=== PATIENT | female | born 1955 | race Caucasian/White ===

== ENCOUNTER → 2023-07-25 13:34 | Outpatient (REF) | payer MEDICARE, OTHER, SELFPAY ==
[2023-07-25 14:20] LABS: Hematocrit 40.2 % (37.0-47.0); Hemoglobin 13.4 g/dL (12.0-16.0); Mean Corp Hgb Conc. 33.3 g/dL (33.0-37.0); Mean Corpuscular Hgb 27.9 pg (27.0-31.0); Mean Corpuscular Volume 83.6 fL (81.0-99.0); Platelet Count 242 10^3/uL (130-400); Red Blood Cell Count 4.81 10^6/uL (4.20-5.40); Red Cell Dist. Width 14.6 % (11.5-14.5); White Blood Cell Count 5.7 10^3/uL (4.8-10.8)
[2023-07-25 14:58] LABS: INR 1.22; PT 15.3 Sec (11.4-14.6)
[2023-07-25 15:06] LABS: ALT (SGPT) 24 U/L (0-35); AST (SGOT) 35 U/L (14-36); Albumin 4.5 g/dl (3.5-5.0); Alkaline Phosphatase 94 U/L (38-126); Blood Urea Nitrogen 21 mg/dl (7-17); Calcium 10.2 mg/dl (8.4-10.2); Carbon Dioxide 24 mmol/L (22-30); Chloride 103 mmol/L (98-107); Glucose 91 mg/dl (70-99); Magnesium 2.1 mg/dl (1.6-2.3); Sodium 136 mmol/L (135-145); Total Bilirubin 0.7 mg/dl (0.2-1.3); Total Protein 7.3 g/dl (6.3-8.2); eGFR > 60.00
== END ==
LOC: SDSPAT 13:34
PROVIDERS: ATTENDING PHYSICIAN Internal Medicine Cardiovascular Disease; FAMILY PHYSICIAN Internal Medicine; OTHER PHYSICIAN Internal Medicine Cardiovascular Disease
DX: I48.0 Paroxysmal atrial fibrillation (principal); I48.92 Unspecified atrial flutter
CPT/HCPCS: 36415; 80053; 83735; 85027; 85610; 86850; 86900; 86901; 93005

== ENCOUNTER 2023-08-04 07:56 | Day surgery (SDC) | payer MEDICARE, OTHER, SELFPAY | END 2023-08-04 09:30 | disposition home or self-care (01) | LOC: CATH 07:56 | PROVIDERS: ATTENDING PHYSICIAN Internal Medicine Cardiovascular Disease; FAMILY PHYSICIAN Internal Medicine; OTHER PHYSICIAN Internal Medicine Cardiovascular Disease | DX: I48.0 Paroxysmal atrial fibrillation (principal); I48.92 Unspecified atrial flutter; R00.2 Palpitations; F41.9 Anxiety disorder, unspecified; Z79.01 Long term (current) use of anticoagulants; I08.3 Combined rheumatic disorders of mitral, aortic and tricuspid valves; I08.8 Other rheumatic multiple valve diseases | CPT/HCPCS: 93312; 93320; 93325 ==

== ENCOUNTER 2023-08-09 09:38 | Day surgery (SDC) | payer MEDICARE, OTHER, SELFPAY ==
[2023-07-25 14:01] VITALS: BMI 21.7
[2023-08-09] VITALS (11 sets, daily range): BP systolic 88–124; BP diastolic 50–80
[2023-08-09] MEDS: NSS 500 IV (10:23)
[2023-08-09 13:00] LABS: ACT-LR - POC 276 Seconds (116-155)
[2023-08-09 13:35] LABS: ACT-LR - POC 179 Seconds (116-155)
[2023-08-09 13:42] LABS: ACT-LR - POC 371 Seconds (116-155)
[2023-08-09 14:09] LABS: ACT-LR - POC 395 Seconds (116-155)
[2023-08-09 14:25] LABS: ACT-LR - POC 385 Seconds (116-155)
[2023-08-09 14:47] LABS: ACT-LR - POC 137 Seconds (116-155)
--- NOTE | 2023-08-09 15:10 | ITS.CL.ABL ---
Stage Electrician Helper - Ablation
Ablation
Procedure Report:
Primary Cured Meat Packing Supervisor: Pio Guillaume MD
Procedure Date: 08/09/2023
Patient History:
Patient is a pleasant 68-year-old female with a past medical history significant for palpitations, anxiety, lower back pain, paroxysmal atrial flutter status post CTI RFA and paroxysmal atrial fibrillation on Eliquis and beta-amadeo.
Indication:
Symptomatic paroxysmal atrial fibrillation
Arrhythmia Specific History:
Prior Medical Therapies for Rate and Rhythm Control:
X Beta-amadeo
[ ] Calcium channel-amadeo
[ ] Amiodarone
[ ] Dronederone
[ ] Sotalol
[ ] Flecainide
[ ] Dofetilide
[ ] Options limited by bradycardia
[ ] Options limited by comorbid renal disease
Prior Procedural Therapies for AF/AFL:
X Cardioversion
[ ] Pulmonary Vein Isolation
[ ] Posterior Wall Isolation
X Additional lines (Specify) -- CTI RFA
[ ] Surgical Abbott-MAZE or PVI (Specify)
Procedure Performed:
X AF ablation procedure (74527) -- includes LA/CS pacing, trans-septal, 3D mapping, + ICE
[ ] +IV drug (20863)
[ ] +Other Arrhythmia (20314)
[ ] +Other AF Line/ablation (33652)
Risks and expected recovery has been explained in detail. Alternative options have been explored, and in a shared-decision making fashion we have decided that this was the most appropriate procedure.
Method
NPO status confirmed. Grounding pad applied. Defibrillator pads applied. Continuous surface ECG, pulse oximetry, and blood pressure were monitored. Procedure was performed under general anesthesia, with anesthesia services.
Both groins were clipped, prepped with Chloraprep, and draped in sterile fashion. Time out was called. Local anesthesia administered with bupivacaine. The right and left femoral veins were accessed for catheter placement, using ultrasound guidance,
micro-puncture needle/wire, and modified seldinger technique. [ ] sheaths were placed. The following catheters were used:
[ ] Tacticath SE (D/F Curve) ablation catheter
X Viewflex 9Fr ICE catheter
X Inquiry decapolar 6Fr diagnostic catheter
[ ] CRD Hex 6Fr
X Arctic Front Advance Cryoballoon (28mm)
X Achieve Advance mapping catheter (15mm)
[ ] [employer] AcuNav 8 Fr ICE catheter
[ ]Other: [ ]
Intracardiac ultrasound (ICE) was carefully advanced into the right atrium to guide sheath placement over a J-wire, catheter placement, guide trans-septal puncture, identify potential complications, identify anatomic structures and ensure proper
contact between ablation catheter and tissue.
Heparin was given prior to trans-septal puncture. Heparin was given to achieve and maintain a target ACT of 300-400 seconds.
Trans-septal access was performed under ICE guidance. The trans-septal puncture was performed with a SafeSept wire through a Brockenbrough needle assembly through agilis steerable sheath. The wire was visualized as it entered the LSPV. The
Brockenbrough needle assembly, SafeSept wire and sheath dilator were removed under negative pressure. The Protrack pigtail wire was advanced through the sheath into the left atrium with position confirmed on ICE and fluoroscopy. The steerable long
sheath was exchanged from the cryo steerable sheath over the Protrack wire and was advanced into the LA and positioned at the mitral annulus, LA pressure measured.
ICE and 3D mapping was performed to identify relevant cardiac structures. A careful 3D map was created to assess for regions of low-voltage and abnormal electrogram signals. Additional mapping was performed as outlined below. See synopsis for
details.
Cryoballoon ablation was performed using freeze/thaw/freeze at 2-4 minute intervals. Ablation targets included Cryoballoon temperatures of -30 degrees @ 30 seconds with goal temp typically between -40 and -50 degrees Celsius with time to effect when
measurable recorded to guide duration of application and need for repeat ablation in each vein. Esophageal temperature monitored throughout intervention. Phrenic nerve pacing performed during cryoapplication in the right pulmonary veins to monitor
for any evidence of PNI requiring application termination. See synopsis and procedure log for details.
Catheter and sheath were removed from the left atrium and post-ablation intracardiac echo evaluation was consistent with pre-ablation with no changes and no pericardial effusion and there is no left atrial thrombus or left ventricle thrombus seen.
Electrophysiology study was performed. Hemostasis was obtained with vascade/vascade MVP for each groin with manual pressure. Protamine was used for reversal.
Estimated Blood Loss
5-10 mL
Complications
None
Procedure Synopsis:
The patient entered the room in SR. Three-dimensional mapping with EnSite system was performed with reconstruction of left atrium utilizing Achieve catheter. Intracardiac ultrasound and EnSite was used for guidance of ablation and placement of the
Cryoballoon. Patient was noted to have very paroxysmal AF during procedure with frequent AF and return to SR. PV seal was confirmed with pressure waveform and ICE. Using the Achieve catheter, it was confirmed that pulmonary veins were active. All
pulmonary veins were isolated successfully using Cryoballoon ablation using freeze/thaw/freeze cycles at 2-4-minute intervals, with good [id number] of isolation. No signal was noted in the right sided veins however temperature profile and cryo
lesion met appropriate metrics. During the right-sided PV ablation, phrenic nerve pacing was performed to assess the phrenic nerve strength and the phrenic nerve was intact throughout the right-sided ablation. Pre- and post-pulmonary vein recording
and pacing from the Achieve catheter was utilized to ensure complete pulmonary vein isolation. LA voltage map created at procedure conclusion confirming WACA of bilateral PVs.
Fluoroscopy: 16.9 minutes; 20.70 mGy
Contrast used: 0 cc
Baseline Intervals:
Rhythm: SR
UT: 131 ms
QRS: 117 ms
QT: 500 ms
QTc: 442 ms
A-A: 1280 ms
R-R: 1280 ms
Post-Procedure Intervals:
UT: 118 ms
QRS: 98 ms
QT: 462 ms
QTc: 498 ms
A-A: 862 ms
R-R: 862 ms
Recommendations
- Bedrest with straight-leg precautions as ordered
- Anticipate same day discharge if patient meeting clinical metrics
- Resume home medications as indicated
- Ok to resume anticoagulation tonight if patient and groin sites stable
- PPI daily for 30 days
- Plan for follow-up in office in 4-[address] Guillaume
- Hold beta-amadeo due to prior bradycardia; if palpitations, can resume as daily
Nathaniel oGod DO
Clinical Cardiac Care Management Associate
cc: Pio Guillaume MD; Ivonne Enrique DO
[2023-08-09] MEDS: ANESTHETIC LOZENGE 1 LOZENGE PO (16:45)
[2023-08-09] MEDS: TYLENOL 650 MG PO (16:45)
--- NOTE | 2023-08-09 17:04 | W.PN.UPDATE ---
Update Note
Progress Note Update
Pt seen post PVI. Bilat groin sites with vascade closure, no ht/bleeding, non tender. OOB ambulating. Urinating without difficulty. Post EKG NSR 60s, no acute changes. Resume eliquis tonight. Will discontinue metoprolol d/t bradycardia. Followup
with Dr. Guillaume arranged. Home today if groin sites/tele remain stable.
[2023-08-10 08:15] LABS: ACT-LR - POC > 397 Seconds (116-155)
== END 2023-08-09 18:14 | disposition home or self-care (01) ==
LOC: CATH 09:38
PROVIDERS: ATTENDING PHYSICIAN Internal Medicine Cardiovascular Disease; FAMILY PHYSICIAN Internal Medicine
DX: I48.0 Paroxysmal atrial fibrillation (principal); I48.92 Unspecified atrial flutter; M54.50 Low back pain, unspecified; Z98.890 Other specified postprocedural states; Z79.01 Long term (current) use of anticoagulants; F41.9 Anxiety disorder, unspecified; F32.A Depression, unspecified; I47.19 Other supraventricular tachycardia; Z88.0 Allergy status to penicillin; I08.3 Combined rheumatic disorders of mitral, aortic and tricuspid valves; I70.0 Atherosclerosis of aorta
CPT/HCPCS: 93312; 93320; 93325; C1766 ×2; C1894; C1730; C1893; C1733; C1892; C1759; 76937; 85347; 86900; 86901; 93005; 93656

== ENCOUNTER 2023-08-10 23:11 | Inpatient (IN) | payer MEDICARE, OTHER, SELFPAY ==
[2023-08-10] VITALS (15 sets, daily range): BP systolic 83–124; BP diastolic 51–93; BMI 22.3
[2023-08-10] MEDS: CARDIZEM 10 MG IV (20:53)
[2023-08-10] MEDS: CARDIZEM 125 IV (20:55)
[2023-08-10 20:56] LABS: % Basophils 0.9 % (0-2); % Eosinophils 3.2 % (0-6); % Immature Granulocytes 0.3 % (0-0.5); % Lymphocytes 32.5 % (20.5-51.1); % Neutrophils 57.1 % (42.2-75.2); Absolute Basophils 0.1 10^3/uL (0-0.2); Absolute Eosinophils 0.2 10^3/uL (0-0.7); Absolute Lymphocytes 2.3 10^3/uL (1.2-3.4); Absolute Monocytes 0.4 10^3/uL (0.1-0.6); Hematocrit 41.7 % (37.0-47.0); Mean Corp Hgb Conc. 33.6 g/dL (33.0-37.0); Mean Corpuscular Hgb 28.1 pg (27.0-31.0); Mean Corpuscular Volume 83.7 fL (81.0-99.0); Nucleated Red Blood Cells % 0 %; Platelet Count 225 10^3/uL (130-400); Red Blood Cell Count 4.98 10^6/uL (4.20-5.40); Red Cell Dist. Width 14.8 % (11.5-14.5)
[2023-08-10 21:18] LABS: ALT (SGPT) 26 U/L (0-35); AST (SGOT) 61 U/L (14-36); Albumin 4.5 g/dl (3.5-5.0); Alkaline Phosphatase 87 U/L (38-126); Blood Urea Nitrogen 19 mg/dl (7-17); Calcium 10.2 mg/dl (8.4-10.2); Carbon Dioxide 26 mmol/L (22-30); Chloride 99 mmol/L (98-107); Estimated Creatinine Clearance 68 ml/min; Glucose 113 mg/dl (70-99); Magnesium 1.9 mg/dl (1.6-2.3); Sodium 134 mmol/L (135-145); Total Bilirubin 0.6 mg/dl (0.2-1.3); Total Protein 7.2 g/dl (6.3-8.2); eGFR > 60.00
--- NOTE | 2023-08-10 21:44 | ED.GENMED ---
History of Present Illness
General
Chief Complaint: Heart Rate Problem
Source: patient and family
Exam Limitations: none
Time Seen by Provider: 08/10/23 20:40
Travel History
Have you had any contact with someone who has COVID-19?: No
Do you have any symptoms of coronavirus? Fever > 100 degrees, chills, cough, shortness of breath, sore throat, loss of taste or smell, muscle aches, or headache?: No
History of Present Illness
History of Present Illness:
68-year-old female who presents after she noticed her heart racing. She also had some pain in the middle of her back. Patient states she also had palpitations last night and called cardiology and was advised to try to wait it out. She had an
ablation done yesterday. Patient states that today it has persisted for 4 to 5 hours. She is anticoagulated. She does report discomfort in the middle of her chest or her back which is not usual for her atrial fibrillation/flutter.
Past History
Past History
ED Past Medical History: Arrthythmia (A-fib/a flutter) and Psychiatric
Phy Exam
Physical Exam
Physical Exam:
CONSTITUTIONAL Patient alert and oriented to person, place and time. Well-appearing. Vital signs reviewed.
HEAD atraumatic, normocephalic.
EYES eyelids normal to inspection, Extraocular muscles intact, Conjunctiva normal, Sclera normal.
NECK normal range of motion, Trachea midline, no jugular venous distention.
RESPIRATORY CHEST No respiratory distress noted, Chest expansion equal, Bilateral breath sounds clear.
CARDIOVASCULAR regular and tachycardic, otherwise heart sounds normal
ABDOMEN abdomen nontender, Bowel sounds normal. No distention.
BACK normal inspection, no obvious deformities
UPPER EXTREMITY range of motion normal, Motor strength normal, no cyanosis, no edema.
LOWER EXTREMITY range of motion normal, Motor strength normal, no cyanosis, no edema.
NEURO Speech normal, No focal motor deficits, Baisden coma scale 15, Memory normal, Cranial Nerves intact to screening exam.
Course
Orders/Labs/Results
Orders:
Orders
08/10/23 20:10
EKG [Electrocardiogram (*1)] Stat
Reason for Study: Atrial Fibrillation
EKG- Treatment ONCE
08/10/23 20:47
Cardiac Monitoring- Treatment ONCE
Diltiazem 125 mg/125 ml Nss [Cardizem] 125 mg in 125 ml IV NOW
Initial dose in mg/hr, then titrate:: 5
Titrate to keep:: Heart rate 80-100 bpm
Titrate by mg/hr:: 5 mg/hr
Frequency of titrations (minutes):: 15
Maximum dose in mg/hr:: 15
Diltiazem HCl [Cardizem] 10 mg IV NOW STA
CR Chest Portable - 1 View Urgent
Comment:
Reason For Exam: cp, recent ablation
Reason Study Needs to be Portable: Unable to Transport
08/10/23 20:49
Complete Blood Count/With Diff Urgent
Comprehensive Metabolic Panel Urgent
Magnesium Urgent
Abnormal Lab Results
08/10/23
20:49
RDW 14.8 H %
(11.5-14.5)
Sodium 134 L mmol/L
(135-145)
BUN 19 H mg/dl
(7-17)
Glucose 113 H mg/dl
(70-99)
AST 61 H U/L
(14-36)
08/10/23 20:49
08/10/23 20:49
Vital Signs
Initial and Last Documented VS:
Initial Vital Signs
Temp Pulse Resp BP Pulse Ox
98.2 F 141 18 124/93 96
08/10/23 20:22 08/10/23 20:22 08/10/23 20:22 08/10/23 20:22 08/10/23 20:22
Last Documented Vital Signs
Temp Pulse Resp BP Pulse Ox
98.2 F 72 16 99/73 97
08/10/23 20:22 08/10/23 22:15 08/10/23 22:15 08/10/23 22:15 08/10/23 22:15
MDM/Problems Addressed
MDM/Problems Addressed:
Atrial flutter with RVR
*Radiology
Radiology exam reviewed: radiology read reviewed
*Pulse Oximetry
Patient hypoxic: no
*EKG
Interpreted by ED Provider?: Yes
Interpretation: abnormal
Rate: tachycardiac
Rhythm: atrial flutter
Ischemia: non-specific ST changes
*Hand Coremaker Interpretation
Rate: tachycardiac
Interpretation: abnormal
Rhythm: atrial flutter
*Critical Care Note
Total Time (30-74mins, 75-104mins- exclusive of procedures): 40 minutes
Data Reviewed
Review of Other/Old Records Reveals: Operative Reports (Ablation report from 08/08)
Source: patient and family
Prescriptions/Medications Considered But Not Given:
Consider beta-amadeo blood pressure marginal
Patient Management
Discussion with other providers: Hospitalist and Company Pilot (Case discussed with Dr. Myles)
Escalation/DeEscalation of care consider admission/obs:
Six 8-year-old female who to the atrial flutter with RVR after ablation. Improved now on IV Cardizem. Offered ED cardioversion after discussion with cardiology. Patient would not like to proceed as she is a bit hesitant for that. She is hoping
to convert on her own and prefers monitoring in the hospital. I do not think this is unreasonable. Likely will benefit from AV blockers at home but it is acknowledged that in the past she had relative hypotension and a little bit of bradycardia.
Cardiology to consider.
ED Attending Note
-
Portions of this chart may have been created with voice recognition software.� Occasional wrong word or��sound alike� substitutions may have occurred due to the inherent limitations of voice recognition software.
Discharge Plan
Departure
Patient Disposition: Admit
Date of Disposition: 08/10/23
Time of Disposition: 22:41
Admit to: Telemetry
Presentation/result/management discussed w/ accepting MD/DO: Hospitalist
Discharge Problem:
Atrial flutter with rapid ventricular response
Prescriptions:
No Action
sertraline 100 mg Tablet
150 mg PO DAILY
alprazolam 0.25 mg Tablet
0.125 - 0.25 mg PO BID PRN (Reason: anxiety)
Patient Comments:
08/10/2023: last filled 07/31/23, 30 tabs for 15 days from [id number]
Eliquis 5 mg Tablet
5 mg PO BID
estradiol 0.01 % (0.1 mg/gram) cream
1 appful VAGINAL SUWE
cholecalciferol (vitamin D3) 1,250 mcg (50,000 unit) capsule
1,250 mcg PO FR
Interventions
Interventions:
*Risk Screen - Suicide Last Done: 08/10/23 20:27
*General Assessment Last Done: 08/10/23 20:27
*Neglect/Abuse Screening Last Done: 08/10/23 20:27
*ED COVID-19 Vaccine History Last Done: 08/10/23 20:34
ED- Cardiac Assessment Last Done: 08/10/23 20:42
ED- Pulmonary Assessment Last Done: 08/10/23 20:42
Discharge Date and Time
Print Language: UPPER SORBIAN
--- NOTE | 2023-08-10 22:56 | HPS.HSE ---
Addendum entered and electronically signed by John Whaley DO 08/11/23 02:10:
Patient seen and examined independently. Agree with findings and plan as set forth by SHERI Lanier.
Patient is a 68y F with PMH significant for paroxysmal A-Fib / Flutter, anxiety and osteoporosis who presents to ED complaining of chest tightness, back pain and palpitations. Patient underwent PVI ablation here at on 08/09/23. She states
that she went home and developed her current symptoms later that evening. She took a dose of Xanax and was able to get to sleep. This AM she felt well. Unfortunately, her symptoms recurred this afternoon. She took another dose of Xanax; however,
her symptoms did not improve this time. Patient presented to the ED for further evaluation and treatment.
Patient notes that the pain in her back is between her shoulder blades. She states that it was 7/10 at it's worst. Currently her pain is 3/10.
She was noted to be in A-Fib with rapid ventricular rate here in the ED and has been started on Cardizem infusion with improvement in rates and her subjective palpitations.
Ass:
Paroxysmal Atrial Fibrillation / Flutter with Rapid Ventricular Response
Chest Pain s/p A-Fib Ablation (08/09/23)
Myocardial Injury - rule out ischemia / ACS.
Anxiety / Depression
Plan:
Admit to IVU.
Continue Cardizem infusion and titrate as needed for adequate rate control / adequate perfusion.
ASA now and daily.
Continue home Eliquis.
Follow for any increase in pain and / or development of new symptoms.
Cardiology aware of current presentation, troponin, etc - follow for additional recommendations.
Follow serial troponin to peak - ? related to recent intervention, but concern given pain syndrome.
CT scan done in the ED shows small posterior pericardial effusion, no evidence of contrast extravasation, etc.
? tiny focus of air representing esophageal injury? No complaints of dysphagia / odynophagia / etc.
Consider GI evaluation.
Continue home Xanax PRN anxiety.
Original Note:
Family Physician
-
Family Physician: Ivonne Enrique
Chief Complaint
-
Posterior scapular pain, rapid heart rate, shortness of breath
History of Present Illness
68-year-old female complaining of heart racing with pain in the middle of her back along with palpitations last night she reports taking 0.25 mg of Xanax was able to fall asleep and the pain went away. When she woke up today the racing of the heart
rate came back along with chronic pain between her shoulder blades and shortness of breath feeling like she cannot take a deep breath. She reports she took 0.125 mg of Xanax with no improvement. she has been having some fullness sensation in
stomach/ front of chest as if to burp and has taken occcasional prilosec she states. she denies any burning sensation. She is compliant with Eliquis since starting in December 2022. She had a cardiac ablation done yesterday at 11:[address] Lang
from cardiology. She is unsure if she has ever been tested for thyroid issues. She denies fever, chills, anterior chest pain, cough, abdominal pain, nausea, vomiting, diarrhea, urinary symptoms. She is anxious and asking for Xanax tonight. She
has past medical history of hypotension A-fib/a flutter anxiety, depression osteoporosis, osteopenia, lactose intolerance
Medical History
Past Medical History
Past Medical History: Reports Other
Additional Past Medical History:
A-fib/a flutter
anxiety
depression
osteoporosis
osteopenia
lactose intolerance
Past Surgical History: Reports Other
Additional Past Surgical History:
Hx ablation 08/09/2023, ablation 03/15/2023
Social History
Tobacco: Non-smoker
Alcohol: Occasional (Drinks 2 glasses of wine 3 days a week)
Drug: None
Personal: Single
Living: With Family (Son)
Family History
Family History: Other (Mother had history of A-fib and hyperlipidemia, dementia, father first SC age 38 third SC age 48 )
Allergies / Home Medications
Allergies reflects when Allergies were last updated in [facility].
Home Medications with original date entered in [facility]
Allergy/Medication List:
Allergies
Allergy/AdvReac Type Severity Reaction Status Date / Time
Penicillins Allergy Rash Verified 08/09/23 10:17
Home Medications
alprazolam 0.25 mg tablet 0.125 - 0.25 mg PO BID PRN anxiety 03/03/23
apixaban 5 mg tablet (Eliquis) 5 mg PO BID 03/03/23
sertraline 100 mg tablet 150 mg PO DAILY 03/03/23
cholecalciferol (vitamin D3) 1,250 mcg (50,000 unit) capsule 1,250 mcg PO FR 08/10/23
estradiol 0.01% (0.1 mg/gram) vaginal cream 1 appful vaginal SUWE 08/10/23
Review of Systems
-
History Source: Patient and Family (Son at bedside)
A 12 point ROS was completed and negative except as noted: Yes
Constitutional: Denies Fever, Fatigue or Chills
EENT: Denies Sore Throat or Runny Nose
Respiratory: Reports Trouble Breathing; Denies Cough
Cardiac: Reports Palpitations and Other (Mid scapular back pain); Denies Chest Pain, Diaphoresis or Syncope
Abdomen/GI: Denies Abdominal Pain, Nausea, Vomiting, Diarrhea, Constipated, Bloody Stools or Black Stools
: Denies Dysuria, Frequency, Flank Pain, Incontinence, Difficulty Voiding or Urgency
Musculoskeletal: Denies Joint Pain or Edema
Skin: Denies Itching or Rash
Neurological: Denies Dizzy or Headache
Endocrine: Reports No Symptoms
Hematologic/Lymphatic: Reports No Symptoms
Psych: Reports Anxiety
Physical Exam
Vital Signs
Vital Signs
Temp Pulse Resp BP Pulse Ox
98.2 F 72 16 99/73 97
08/10/23 20:22 08/10/23 22:15 08/10/23 22:15 08/10/23 22:15 08/10/23 22:15
Physical Exam
General: Conversant; No Fever or Chills
HEENT: NormoCephalic, Anicteric, Moist mucous membranes, PERRLA, [place] Conjunctivae and No Ptosis
Respiratory: Clear; No Wheezes, Rales or Rhonchi
Cardiac: S1/S2 and Irregular Rhythm (afib with rvr ); No Murmur, Rub, Gallop or Peripheral Edema
GI: Soft, Non Tender, Non Distended, Normal Bowel Sounds and No Hepatosplenomegaly
Rectal: Deferred by Provider
Genito-urinary: Deferred by me
Musculoskeletal: No Clubbing, No Cyanosis and No Edema
Skin: Warm and Dry; No Rash or Jaundice
Neuro: AO x 3, No Motor Deficits, Nonfocal/grossly intact, Cranial Nerves Intact and No Sensory Deficits; No Slurred Speech, Facial Droop or Tremors
Psych: Anxious
Laboratory Results
-
08/10/23 20:49
08/10/23 20:49
Laboratory Results
Total Bilirubin 0.6 mg/dl (0.2-1.3) 08/10/23 20:49
AST 61 U/L (14-36) H 08/10/23 20:49
ALT 26 U/L (0-35) 08/10/23 20:49
Alkaline Phosphatase 87 U/L (38-126) 08/10/23 20:49
Impression/Plan
-
Impression/plan:
Admit to IVU
#Rapid A-fib with RVR/Hx A-fib a flutter
#Hx ablation 08/09/2023, ablation 03/15/2023
-IV Cardizem drip
Hx hypotension to metoprolol in fall 2022 per pt
-Continue SURVEYOR HELPER Eliquis
-Consult [facility] cardiology
-Check TSH with free T4 reflex
#Chest pain / elevated troponin post ablation unclear etiology concern ACS
trop 3.64 will repeat at 1 am
- will checK Ct pe study
- check troponin and follow
-Cardiology Dr. Zhang made aware, copies of EKG sent via [place] text along with troponin evaluation and patient still with posterior scapular pain
EKG 136 bpm, QTc 451 MS with T wave inversion lateral leads, ST depression in inferior leads
CXR: No acute cardiopulmonary process
#Acute on chronic Anxiety
depression Hx
-Continue Zoloft 150 mg daily, Xanax 0.125-0.25 mg twice daily as needed
pt requesting po hs xanax
check tsh with free t4 reflex
#Osteopenia/osteoporosis Hx
-Continue vitamin D3
Lactose intolerance
-Lactose-free diet
DVT prophylaxis
Continue SURVEYOR HELPER Eliquis
Full code
[2023-08-10] MEDS: ELIQUIS 5 MG PO (23:53)
[2023-08-10] MEDS: XANAX 0.25 MG PO (23:54)
[2023-08-11] VITALS (14 sets, daily range): BP systolic 65–119; BP diastolic 44–77; BMI 21.9
[2023-08-11 00:21] LABS: TSH Reflex To Free T4 4.49 uIU/ml (0.47-4.68)
[2023-08-11] MEDS: LOW STRENGTH ASPIRIN 324 MG PO (01:08)
--- NOTE | 2023-08-11 01:16 | PTCARENOTE ---
Patient admitted to IVU. Cardizem at 10mg/hr. A-flutter 60-70's. 2 out 10 right upper back pain. Plan of care reviewed. Will collected labs at 0300 with EKG. Lights dimmed, call kuo in reach
--- NOTE | 2023-08-11 03:13 | PTCARENOTE ---
HR 40-70's. Cardizem decreased to 5mg/hr. BP 86/54. Patient attempting to convert to SB/SR. She denies lightheadedness. Labs collected
[2023-08-11 03:14] LABS: % Basophils 0.9 % (0-2); % Eosinophils 3.9 % (0-6); % Immature Granulocytes 0.5 % (0-0.5); % Lymphocytes 39.5 % (20.5-51.1); % Neutrophils 48.2 % (42.2-75.2); Absolute Basophils 0.1 10^3/uL (0-0.2); Absolute Eosinophils 0.2 10^3/uL (0-0.7); Absolute Lymphocytes 2.3 10^3/uL (1.2-3.4); Absolute Monocytes 0.4 10^3/uL (0.1-0.6); Absolute Neutrophils 2.8 10^3/uL (1.4-6.5); Hematocrit 36.8 % (37.0-47.0); Hemoglobin 12.6 g/dL (12.0-16.0); Mean Corp Hgb Conc. 34.2 g/dL (33.0-37.0); Mean Corpuscular Hgb 28.3 pg (27.0-31.0); Mean Corpuscular Volume 82.5 fL (81.0-99.0); Nucleated Red Blood Cells % 0 %; Platelet Count 183 10^3/uL (130-400); Red Blood Cell Count 4.46 10^6/uL (4.20-5.40); Red Cell Dist. Width 14.7 % (11.5-14.5); White Blood Cell Count 5.7 10^3/uL (4.8-10.8)
[2023-08-11 03:37] LABS: Blood Urea Nitrogen 15 mg/dl (7-17); Carbon Dioxide 26 mmol/L (22-30); Chloride 104 mmol/L (98-107); Estimated Creatinine Clearance 80 ml/min; Glucose 137 mg/dl (70-99); Sodium 136 mmol/L (135-145); eGFR > 60.00
--- NOTE | 2023-08-11 03:38 | PTCARENOTE ---
Patient BP 86/58, HR 40-70's with conversion pauses. Cardizem decreased to 5 mg/hr and then 2.5mg/hr. Cardizem gtt eventually stopped at 0323. She converted to SB 0323, EKG performed, SB HR 51. HR 50-60's, last BP 89/58. Patient asymptomatic
assisted to the bathroom to void. Labs are pending. Notified [facility] WADE.
[2023-08-11] MEDS: ELIQUIS 5 MG PO ×2 (08:50→20:35)
[2023-08-11] MEDS: LOW STRENGTH ASPIRIN 81 MG PO (08:50)
[2023-08-11] MEDS: ZOLOFT 150 MG PO (08:51)
[2023-08-11] MEDS: PROTONIX IV 40 MG IV (08:53)
[2023-08-11] MEDS: NSS (PRESERVATIVE FREE) 10 ML IV (08:53)
[2023-08-11] MEDS: XANAX 0.25 MG PO (08:56)
--- NOTE | 2023-08-11 09:28 | CON.CAR ---
Addendum entered and electronically signed by Allison Myles DO 08/11/23 10:57:
I saw and examined the patient.
The Blood Bank Custodian's note was reviewed and I agree with the note.
Comment: I had the pleasure to meet your patient Lyndsay following admission to [facility] for symptomatic recurrent atrial flutter following atrial fibrillation PVI 08/09/2023. After returning home she had approximately 5 hours of rapid
heartbeats as well as sharp scapular and back pain prompting return to the ER. She was found to be in rapid atrial flutter in the 140s placed overnight on a Cardizem drip. She has been in and out of atrial flutter overnight currently in atrial
flutter with heart rates in the low 100s off IV Cardizem. She reports improved pain although does have slight scapular pain with deep inspiration. No fevers or chills. No groin or leg pain. CT scan without PE/dissection/significant pericardial
effusion.
General: No acute distress, AAOX3
Neck: Negative JVD
Heart: Irregularly irregular positive S1/S2, no murmur or rub
Lungs: CTA b/l, negative wheezes/rales/rhonchi
Abd: Positive BS, NT/ND, neg rebound/rigidity/guarding
Ext: No edema. Bilateral groin sites without hematoma or significant ecchymosis.
Neuro: nonfocal
Plan:
Symptomatic rapid atrial flutter
-Patient has a history of both paroxysmal atrial fibrillation and flutter with a history of flutter ablation in February 2023 and recent atrial fibrillation ablation/PVI 08/09/2023
-No indication for cardioversion as patient's arrhythmia is paroxysmal
-Discussed options: Will initiate Tikosyn loading protocol
-Given baseline bradycardia, will start patient on Tikosyn 250 mcg Q12 hours and follow QTc for 5 doses
-Continue Eliquis.
-hgb 12.6, sodium 136, potassium 4, BUN and creatinine 15/0.5
-TSH 4.49, normal
Elevated troponin secondary to recent ablation procedure/Atypical chest pain secondary to inflammation from procedure
-CT with no PE or dissection, without significant pericardial effusion
-d/w nursing
-Anticipate discharge on Monday following fifth dose of Tikosyn
Original Note:
Consultation
Consultation Request
Date/Time Consultation Performed: 08/11/23
Requesting Provider: Dr. Whaley
Performing Provider: Monica Holder PA-C for Dr. Myles
Reason for Consultation: aflutter
Medical History
-
Chief Complaint: aflutter
History of Present Illness:
Patient is a 68 yo F with PMH of aflutter s/p ablation 02/2023, PAF s/p PVI 08/09/23 who presented back due to recurrence of palpitations. She states it felt similar to her afib. She briefly had some the evening of 08/08. She took a xanax with
improvement. She states she then felt well until yesterday afternoon when she recurred around 3PM. She states this lasted for 4-5 hours and she presented to ER for eval. She also reported some associated sharp back pain and chest aching. Upon
arrival was noted to be in aflutter with HRs in 140s. She since has been paroxysmal in and out of afib and aflutter overnight. Reports feeling improved. chest/back discomfort improved with tylenol. CT scan without PE/dissection/significant
pericardial effusion.
PMH:
Paroxysmal atrial fibrillation s/p PVI 08/09/23
Atrial flutter s/p ablation 02/2023
Chronic OAC with eliquis
Anxiety
Past Medical History
Past Medical History: Other (in HPI)
Social History
Tobacco: Non-Smoker
Alcohol: Occasional
Employment: Employed
Allergies / Home Medications
Allergy/AdvReac Type Severity Reaction Status Date / Time
Penicillins Allergy Rash Verified 08/09/23 10:17
�Medication �Instructions �Recorded �Confirmed �Type
alprazolam 0.25 mg tablet 0.125 - 0.25 mg PO BID PRN anxiety 03/03/23 08/10/23 History
apixaban 5 mg tablet (Eliquis) 5 mg PO BID 03/03/23 08/10/23 History
sertraline 100 mg tablet 150 mg PO DAILY 03/03/23 08/10/23 History
cholecalciferol (vitamin D3) 1,250 1,250 mcg PO FR 08/10/23 08/10/23 History
mcg (50,000 unit) capsule
estradiol 0.01% (0.1 mg/gram) 1 appful vaginal SUWE 08/10/23 08/10/23 History
vaginal cream
Review of Systems
-
History Source: Patient
All other systems: Negative unless noted
Physical Exam
Vital Signs
Temp Pulse Resp BP Pulse Ox
97.7 F 108 16 98/77 95
08/11/23 07:17 08/11/23 08:45 08/11/23 07:17 08/11/23 08:43 08/11/23 07:17
Lab Results
08/11/23 02:57
08/11/23 02:57
Troponin I Cancelled 08/11/23 15:00
Physical Exam
General: No Apparent Distress and Comfortable
HEENT: Normocephalic, Anicteric and Moist Mucous Membranes
Respiratory: Clear and Non Labored Respirations
Cardiac: S1/S2 and Irregular Rhythm
GI: Soft, Non Tender, Non Distended and Normal Bowel Sounds
Musculoskeletal: No Clubbing, No Cyanosis and No Edema
Skin: Warm and Dry
Neuro: AO x 3
Impression / Plan
-
Primary Produce Team Lead: Dr. Good
Assessment:
Symptomatic aflutter with RVR, paroxysmal
Elevated troponin, presumed nonischemic myocardial injury secondary to recent PVI
Paroxysmal atrial fibrillation s/p PVI 08/09/23
Atrial flutter s/p ablation 02/2023
Chronic OAC with eliquis
Anxiety
HARLAN 08/04/23: EF 50 to 55%, mildly dilated bilateral atria, mild bileaflet prolapse, moderate MR, mild eccentric AR, mild bileaflet prolapse of tricuspid leaflets, mild to moderate TR
Plan:
-Patient returned to [facility] due to several paroxysms of symptomatic afib/aflutter with RVR status post PVI 08/09/2023
-Options discussed with patient including low-dose beta-amadeo versus Tikosyn loading. She opts for Tikosyn loading at this time
-Given baseline bradycardia, will start patient on Tikosyn 250 mcg Q12 hours and follow QTc for 5 doses
-Continue Eliquis. hgb 12.6
-HARLAN from 08/03 with results as above
-trop peaked at 3.6 and downtrending. patient reports pain significantly improved in SR and with tylenol. EKG in SR with lateral T wave inversions, consistent with EKG from 08/08. No evidence of acute ST abnormalities in rapid aflutter. presumed
nonischemic myocardial injury secondary to recent procedure
-CT with no PE or dissection, without significant pericardial effusion
-d/w nursing
Data Reviewed
-
EKG: Tracing Personally Visualized and interpreted
CT Scan: Report Reviewed by me
Medical Tests (Nuc Med, Echo etc): Report Reviewed by me
Labs: Labs Reviewed by me
Old Records: Reviewed
--- NOTE | 2023-08-11 09:40 | W.CARD.TIKOS ---
Initiate Tikosyn
-
I verify that the patient has not taken any verapamil (Isoptin/Calan), ketoconazole (Nizoral), cimetidine (Tagamet), trimethoprim (Trimpex), trimethoprim/sulfamethoxazole (Bactrim), megesterol (Megace), prochlorperazine (Compazine),
hydrochlorothiazide (HCTZ), dolutegravir (Tivicay) or any Class I or Class III anti-arrhythmic within the last three days
AND
I verify that the patient has not taken amiodarone within the last THREE months, or that the patient's amiodarone plasma concentration is <0.3 mcg/mL.
Creatinine 0.5 mg/dL (0.6-1.0) L 08/11/23 02:57
Estimated Creat Clear 80 ml/min 08/11/23 02:57
Does patient have a Ventricular Conduction Abnormality: No
I have assessed the baseline QTc interval (using QT for heart rate less than 60 bpm) and deemed the patient is appropriate for Dofetilide therapy. I understand that Tikosyn is contraindicated if the QTc is >440msec (500msec in patients with
ventricular conduction abnormalities).
Baseline QTc (in msec): 412
QTc interval is greater than 440msec without conduction abnormality OR greater than 500msec with a conduction abnormality, but acceptable to proceed per Cardiology attending.
Ordering Physician: Allison Myles
[2023-08-11] MEDS: TIKOSYN 250 MCG PO ×2 (10:43→22:06)
--- NOTE | 2023-08-11 11:23 | CM ---
Addendum entered by MANOJ Johnson 08/11/23 16:09:
Provided pt. w/ Advanced Directives w/ explanation. Will be avail. as needed.
Reviewed estimated cost of Tikosyn/month.
Also reviewed estimated cost of Eliquis.
Original Note:
CM following for DC planning needs.
Met w/ patient to complete initial assessment.
Pt. resides alone in a private home. She is functionally indep. at baseline without the use of any assisted device.
Pt. has RX plan and uses [facility] in [facility].
Reviewed Advanced Directive request; patient would like information on this. Will provide.
Anticipate DC to home once stable.
Will follow for DC planning needs.
--- NOTE | 2023-08-11 15:25 | W.PN.HOSP.TC ---
Today's Communication/Plan
-
Tikosyn loading per cardiology
Monitor on telemetry
Assessment / Plan
Assessment / Plan
#Rapid A-fib with RVR
#s/p ablation 08/09/2023
# Ablation 03/15/2023
-Off of Cardizem drip
-Cardio plan to do Tikosyn loading
-Further management per cardiology
#Chest pain
-Troponin 3.64 maximum, trending down
-EKG showed minimal ST depression inferiorly
-CT chest PE rule out any dissection
-Currently presuming to be postprocedural in nature.
# Generalized anxiety disorder
depression Hx
-Continue Zoloft 150 mg daily, Xanax 0.125-0.25 mg twice daily as needed
#Osteopenia/osteoporosis Hx
-Continue vitamin D3
# Lactose intolerance
-Lactose-free diet
DVT prophylaxis - Continue SOCIAL PSYCHOLOGIST Eliquis
Full code
Anticipated Discharge: 24 - 48 hours
Subjective/Interval History
-
Date of Service: August 11, 2023
seen and examined
still have pain between biscapular pain
no abd pain/nausea/vomiting
Objective Data
-
Labs:
Laboratory Results
08/11/23
02:57
WBC 5.7
Hgb 12.6
Hct 36.8 L
Plt Count 183
Sodium 136
Potassium 4.0
Chloride 104
Carbon Dioxide 26
BUN 15
Creatinine 0.5 L
Glucose 137 H
Calcium 9.0
Vital Signs:
Vital Signs
Temp Pulse Resp BP Pulse Ox
98.2 F 62 16 95/56 97
08/11/23 15:21 08/11/23 15:21 08/11/23 15:21 08/11/23 11:04 08/11/23 15:21
I&O
08/10/23 08/11/23 08/12/23
06:59 06:59 06:59
Intake Total 120 / 120
Balance 120 / 120
Review of Systems
-
Respiratory: Reports No Symptoms
Cardiac: Reports No Symptoms
Abdomen/GI: Reports No Symptoms
Physical Exam
-
General: No Apparent Distress and Comfortable
HEENT: Negative Oxygen
Respiratory: Clear to Auscultation
Cardiac: Regular Rhythm and S1/S2; Negative Murmur or Rub
GI: Soft, Nontender, Nondistended and Normal Bowel Sounds
Musculoskeletal: No Edema
Neuro: Awake, Alert, Oriented, No Motor Deficits and Nonfocal/Grossly Intact
Psych: Calm
--- NOTE | 2023-08-11 16:12 | CM ---
Priced Tikosyn thru patient's RX plan, . Estimated cost of Tikosyn is $37.95/mo.
Priced Eliquis thru insurance as well. Pt. stated that the last time she went to get Eliquis it was $600. Per sales representative wire rope, cost the first time she fills is $305.20, next fill is $203.55, fill after that would be $76.30. Pt. has used free 30 d
coupon and would not be eligible for another coupon.
Relayed all above info. to patient.
--- NOTE | 2023-08-11 19:23 | PTCARENOTE ---
Pt initially in sinus rhythm @ 07:00 but lapsed back into rapid atrial fib with rates up to 150. Pt seen by LAURO Wu , tikosyn loading started. Telemetry in sinus rhythm consistently from 13:30 onwards. Will monitor closely.
[2023-08-11] MEDS: TYLENOL 650 MG PO (20:35)
[2023-08-12] MEDS: XANAX 0.25 MG PO ×2 (00:11→23:28)
[2023-08-12] MEDS: TUMS 1 TABLET PO (00:30)
--- NOTE | 2023-08-12 00:32 | PTCARENOTE ---
QTc following Tikosyn dose # 2 524 ms (NSR with freq. PAC's 60's-70's on the monitor). EKG also showing septal infarct. Pt. also complaining of excessive belching/indigestion. LAURO Schumacher, notified of all of the above and shown EKG, no new
orders for now, Tikosyn dose to be addressed by cardiology in AM. Tums given for indigestion. Pt. resting quietly.
[2023-08-12 03:38] VITALS: BP 114/45
[2023-08-12 07:06] VITALS: BP 121/65
--- NOTE | 2023-08-12 08:55 | W.PN.HOSP.TC ---
Today's Communication/Plan
-
tikosyn loading per cards
discharge tomorrow
Assessment / Plan
Assessment / Plan
#Rapid A-fib with RVR
#s/p ablation 08/09/2023
# Ablation 03/15/2023
-Off of Cardizem drip
-Getting tikosyn loading, last dose tomorrow.
-EKG today AM showing QTc 525ms, discussed with cardiology
-Further management per cardiology
#Chest pain
-Troponin 3.64 maximum, trending down
-EKG showed minimal ST depression inferiorly
-CT chest PE rule out any dissection
-Currently presuming to be postprocedural in nature.
# Generalized anxiety disorder
depression Hx
-Continue Zoloft 150 mg daily, Xanax 0.125-0.25 mg twice daily as needed
#Osteopenia/osteoporosis Hx
-Continue vitamin D3
# Lactose intolerance
-Lactose-free diet
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
Full code
Anticipated Discharge: Within 24 hours
Subjective/Interval History
-
Date of Service: August 12, 2023
sleeping
had episode of intrascapular pain last evening
Objective Data
-
Labs:
Laboratory Results
08/12/23
08:31
Sodium Pending
Potassium Pending
Chloride Pending
Carbon Dioxide Pending
BUN Pending
Creatinine Pending
Glucose Pending
Calcium Pending
Vital Signs:
Vital Signs
Temp Pulse Resp BP Pulse Ox
97.5 F 63 16 121/65 98
08/12/23 07:14 08/12/23 07:06 08/12/23 07:14 08/12/23 07:06 08/12/23 07:14
I&O
08/11/23 08/12/23 08/13/23
06:59 06:59 06:59
Intake Total 120 / 120
Balance 120 / 120
Review of Systems
-
Respiratory: Reports No Symptoms
Cardiac: Reports No Symptoms
Abdomen/GI: Reports No Symptoms
Physical Exam
-
General: No Apparent Distress and Comfortable
HEENT: Negative Oxygen
Respiratory: Clear to Auscultation
Cardiac: Regular Rhythm and S1/S2; Negative Murmur or Rub
Musculoskeletal: No Edema
Neuro: Awake, Alert, Oriented, No Motor Deficits and Nonfocal/Grossly Intact
Psych: Calm
--- NOTE | 2023-08-12 09:00 | PTCARENOTE ---
Assumed care of pt from night RN. Pt received awake and alert, Ox3. VSS CM shows NSR with frequent PAC's, POX 98% on RA. Tikosyn dose given as per MAY. Pt ambulating in hallway frequently, denies any pain or discomfort.
[2023-08-12] MEDS: LOW STRENGTH ASPIRIN 81 MG PO (09:06)
[2023-08-12] MEDS: ZOLOFT 150 MG PO (09:06)
[2023-08-12] MEDS: ELIQUIS 5 MG PO ×2 (09:07→19:54)
[2023-08-12 09:26] LABS: Blood Urea Nitrogen 18 mg/dl (7-17); Calcium 9.4 mg/dl (8.4-10.2); Carbon Dioxide 27 mmol/L (22-30); Chloride 104 mmol/L (98-107); Estimated Creatinine Clearance 80 ml/min; Glucose 96 mg/dl (70-99); Magnesium 1.9 mg/dl (1.6-2.3); Potassium 4.1 mmol/L (3.5-5.1); Sodium 138 mmol/L (135-145); eGFR > 60.00
[2023-08-12] MEDS: TIKOSYN 250 MCG PO ×2 (09:42→21:16)
[2023-08-12] MEDS: PROTONIX 40 MG PO (09:42)
--- NOTE | 2023-08-12 09:54 | W.PN.CARDCBS ---
Addendum entered and electronically signed by Ken Lazo DO 08/12/23 11:22:
I saw and examined the patient.
The Parcel Post Officer's note was reviewed and I agree with the note.
Comment:
Plan:
Cont Tikosyn load with likely d/c after 5 th dose tomorrow.
Monitor QTc
Discussed with primary service
Original Note:
Today's Communication / Plan
-
Continue Tikosyn load third and fourth dosing today
Continue to monitor QTc, next EKG at noon
Tums as needed for GERD
Impression / Plan
-
Primary Fence Installer: Dr. Good
Assessment:
Presented 08/10/2023 with palpitations, tachycardia
Symptomatic aflutter with RVR, paroxysmal
Elevated troponin, presumed nonischemic myocardial injury secondary to recent PVI
Paroxysmal atrial fibrillation s/p PVI 08/09/23
Atrial flutter s/p ablation 02/2023
Chronic OAC with eliquis
Anxiety
HARLAN 08/04/23: EF 50 to 55%, mildly dilated bilateral atria, mild bileaflet prolapse, moderate MR, mild eccentric AR, mild bileaflet prolapse of tricuspid leaflets, mild to moderate TR
Plan:
-Patient returned to [facility] 08/10/2023 due to several paroxysms of symptomatic afib/aflutter with RVR status post PVI 08/09/2023
-Options discussed with patient including low-dose beta-amadeo versus Tikosyn loading. She opts for Tikosyn loading at this time
-Given baseline bradycardia, patient started on Tikosyn 250 mcg Q12 hours. First dose given 08/11/23 in am. Will need loaded with 5 doses
-QTc stable 524 ms on ECG 08/12/2023. Repeat ECG after 3rd dose at noon today
-Per review of telemetry patient had a brief atrial fibrillation/flutter/tachycardia 08/11/2023 and afternoon. Tachyarrhythmias seem to be calming down with occasional runs of rate control atrial bigeminy.
-Continue Eliquis. hgb 12.6
-Stable renal function and electrolytes
-HARLAN from 08/03 with results as above
-trop peaked at 3.6 and downtrending. patient reports pain significantly improved in SR and with tylenol. EKG in SR with lateral T wave inversions, consistent with EKG from 08/08. No evidence of acute ST abnormalities in rapid aflutter. presumed
nonischemic myocardial injury secondary to recent procedure
-CT with no PE or dissection, without significant pericardial effusion
-Note some belching and indigestion. Okay with providing Protonix and Tums as needed
-d/w nursing
Progress Note - Fence Installer
Subjective
Date of Service: August 12, 2023
Patient seen and examined. Patient sitting in bed. Reports she feels well. Occasionally she notes some skipped or missed beats. She also notes indigestion/belching.
Objective
Labs:
08/11/23 02:57
08/12/23 09:02
Labs
Hgb 12.6 g/dL (12.0-16.0) 08/11/23 02:57
Hct 36.8 % (37.0-47.0) L 08/11/23 02:57
Plt Count 183 10^3/uL (130-400) 08/11/23 02:57
Sodium 138 mmol/L (135-145) 08/12/23 09:02
Potassium 4.1 mmol/L (3.5-5.1) 08/12/23 09:02
BUN 18 mg/dl (7-17) H 08/12/23 09:02
Creatinine 0.5 mg/dL (0.6-1.0) L 08/12/23 09:02
Glucose 96 mg/dl (70-99) 08/12/23 09:02
Troponins
08/10/23 08/11/23 08/11/23
20:49 01:00 02:57
Troponin I 3.640 H* Cancelled 2.520 H* D
08/11/23 08/11/23 08/11/23
05:00 09:00 11:00
Troponin I Cancelled Cancelled Cancelled
08/11/23
15:00
Troponin I Cancelled
Vital Signs and I&O:
Vital Signs
Temp Pulse Resp BP Pulse Ox
97.5 F 63 16 121/65 98
08/12/23 07:14 08/12/23 07:06 08/12/23 07:14 08/12/23 07:06 08/12/23 07:14
Vital Signs
Temp Pulse Resp BP Pulse Ox
97.5 F 63 16 121/65 98
08/12/23 07:14 08/12/23 07:06 08/12/23 07:14 08/12/23 07:06 08/12/23 07:14
Intake & Output
08/10/23 08/11/23 08/12/23 08/13/23
06:59 06:59 06:59 06:59
Intake Total 120 / 120
Balance 120 / 120
Physical Exam
Physical Exam
GEN: No distress, awake, Ox3
HEENT: supple, anicteric, mmm
LUNGS: CTA, no wheezes/rales
CV: Reg, S1/S2, 1/6 syst murmur, no rub or gallop
ABD: soft, BS+, NT/ND
EXT: No edema, clubbing or cyanosis
NEURO: Gross non-focal
SKIN: No rash, warm, dry, pink
[2023-08-12] MEDS: PROTONIX IV IV (10:25)
[2023-08-12] MEDS: TUMS 2 TABLET PO ×2 (10:25→23:28)
[2023-08-12] MEDS: NSS (PRESERVATIVE FREE) IV (10:25)
[2023-08-12] MEDS: TYLENOL 650 MG PO (10:26)
--- NOTE | 2023-08-12 11:43 | PTCARENOTE ---
Tylenol and Tums given as per MAY for neck pain and indigestion.
[2023-08-12 12:02] VITALS: BP 118/56
[2023-08-12 12:08] VITALS: BMI 21.3
[2023-08-12 15:30] VITALS: BP 109/70
[2023-08-12 19:49] VITALS: BP 96/72
[2023-08-12 23:08] VITALS: BP 124/68
--- NOTE | 2023-08-13 00:16 | PTCARENOTE ---
2hr post Tiksoyn EKG showing 2nd degree AV block (Mobitz 1) and QTc of 550 ms. Pt. has been in a mix of NSR with PAC's 60's-80's & Afib up to the 150's (with ambulation), states she feels palpitations at times but is otherwise asymptomatic. VSS.
Currently continues to go in and out of 2nd degree block mixed with NSR. Dr. Zeng notified of all of the above, ordered to hold further Tikosyn and repeat EKG at 0800.
[2023-08-13 04:47] VITALS: BP 122/42
[2023-08-13 05:50] LABS: Blood Urea Nitrogen 23 mg/dl (7-17); Calcium 9.8 mg/dl (8.4-10.2); Carbon Dioxide 26 mmol/L (22-30); Chloride 104 mmol/L (98-107); Estimated Creatinine Clearance 80 ml/min; Glucose 97 mg/dl (70-99); Potassium 4.3 mmol/L (3.5-5.1); Sodium 137 mmol/L (135-145); eGFR > 60.00
[2023-08-13 06:51] VITALS: BP 108/58
--- NOTE | 2023-08-13 09:05 | W.PN.HOSP.TC ---
Today's Communication/Plan
-
tikosyn dosing per cards
monitor one more night
Assessment / Plan
Assessment / Plan
# Rapid A-fib with RVR
#s/p ablation 08/09/2023
# Ablation 03/15/2023
-Off of Cardizem drip
-Getting tikosyn loading
-EKG today AM showing QTc 550ms, discussed with cardiology, plan to lower dose and monitor one more night.
-Further management per cardiology
#Chest pain -resolved
-Currently presumed to be postprocedural in nature.
-Troponin 3.64 maximum, trended down
-EKG showed minimal ST depression inferiorly
-CT chest PE rule out any dissection
# Generalized anxiety disorder
depression Hx
-Continue Zoloft 150 mg daily, Xanax 0.125-0.25 mg twice daily as needed
#Osteopenia/osteoporosis Hx
-Continue vitamin D3
# Lactose intolerance
-Lactose-free diet
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
Full code
Anticipated Discharge: Within 24 hours
Subjective/Interval History
-
Date of Service: August 13, 2023
no complains overnight
ambulating well
no reported chest pain/sob
Objective Data
-
Labs:
Laboratory Results
08/13/23
04:57
Sodium 137
Potassium 4.3
Chloride 104
Carbon Dioxide 26
BUN 23 H
Creatinine 0.6
Glucose 97
Calcium 9.8
Vital Signs:
Vital Signs
Temp Pulse Resp BP Pulse Ox
97.7 F 76 16 108/58 93
08/13/23 06:56 08/13/23 07:00 08/13/23 06:56 08/13/23 06:51 08/13/23 08:55
I&O
08/12/23 08/13/23 08/14/23
06:59 06:59 06:59
Intake Total 480 / 480
Balance 480 / 480
Review of Systems
-
Respiratory: Reports No Symptoms
Cardiac: Reports No Symptoms
Abdomen/GI: Reports No Symptoms
Physical Exam
-
General: No Apparent Distress and Comfortable
HEENT: Negative Oxygen
Respiratory: Clear to Auscultation
Cardiac: Regular Rhythm and S1/S2; Negative Murmur or Rub
Musculoskeletal: No Edema
Neuro: Awake, Alert, Oriented, No Motor Deficits and Nonfocal/Grossly Intact
Psych: Calm
--- NOTE | 2023-08-13 09:12 | PTCARENOTE ---
Assumed care of pt from night RN. Pt received asleep, but wakens easily to verbal. VSS, DARIO shows NSR 70's, POX 93% on RA. Tikosyn on hold this am. Pt denies any pain or discomfort. AM EKG done, awaiting further orders.
[2023-08-13] MEDS: ZOLOFT 150 MG PO (10:08)
[2023-08-13] MEDS: ELIQUIS 5 MG PO ×2 (10:09→19:52)
[2023-08-13] MEDS: PROTONIX 40 MG PO (10:09)
[2023-08-13] MEDS: LOW STRENGTH ASPIRIN 81 MG PO (10:09)
--- NOTE | 2023-08-13 10:12 | W.PN.CARDCBS ---
Today's Communication / Plan
-
Tikosyn dose was reduced to 125 mcg twice daily
Possible discharge next 24 hours if QTc remains stable on lower dose
Impression / Plan
-
Primary Customer Support Engineer: Dr. Good
Impression:
Presented 08/10/2023 with palpitations, tachycardia
Symptomatic aflutter with RVR, paroxysmal
PACs
Elevated troponin, presumed nonischemic myocardial injury secondary to recent PVI
Paroxysmal atrial fibrillation s/p PVI 08/09/23
Atrial flutter s/p ablation 02/2023
Chronic OAC with eliquis
Anxiety, on Zoloft
HARLAN 08/04/23: EF 50 to 55%, mildly dilated bilateral atria, mild bileaflet prolapse, moderate MR, mild eccentric AR, mild bileaflet prolapse of tricuspid leaflets, mild to moderate TR
Plan:
HPI: Patient returned to [facility] 08/10/2023 due to several paroxysms of symptomatic afib/aflutter with RVR status post PVI 08/09/2023
Options discussed with patient including low-dose beta-amadeo versus Tikosyn loading. She opted for Tikosyn loading
Given baseline bradycardia, patient started on Tikosyn 250 mcg Q12 hours. First dose given 08/11/23 in am.
Her QTc prolonged to 550 ms in the p.m. 08/11 and Tikosyn held.
Resume Tikosyn 125 mcg every 12 hours starting midday 08/12 and observe through AM 08/13
If QTc remains stable, possible discharge after a.m. dose 08/13.
Continue Eliquis, hemoglobin stable
Continue medical therapy of non-MD troponin elevation
CT chest without acute findings
Discussed with nursing.
Discussed with son via telephone
Discussed with hospitalist
Progress Note - Customer Support Engineer
Subjective
Date of Service: August 13, 2023
Pt seen and examined. No complaints. No chest pain or shortness of breath.
Objective
Labs:
08/11/23 02:57
08/13/23 04:57
Labs
Hgb 12.6 g/dL (12.0-16.0) 08/11/23 02:57
Hct 36.8 % (37.0-47.0) L 08/11/23 02:57
Plt Count 183 10^3/uL (130-400) 08/11/23 02:57
Sodium 137 mmol/L (135-145) 08/13/23 04:57
Potassium 4.3 mmol/L (3.5-5.1) 08/13/23 04:57
BUN 23 mg/dl (7-17) H 08/13/23 04:57
Creatinine 0.6 mg/dL (0.6-1.0) 08/13/23 04:57
Glucose 97 mg/dl (70-99) 08/13/23 04:57
Troponins
08/10/23 08/11/23 08/11/23
20:49 01:00 02:57
Troponin I 3.640 H* Cancelled 2.520 H* D
08/11/23 08/11/23 08/11/23
05:00 09:00 11:00
Troponin I Cancelled Cancelled Cancelled
08/11/23
15:00
Troponin I Cancelled
Vital Signs and I&O:
Vital Signs
Temp Pulse Resp BP Pulse Ox
97.7 F 76 16 108/58 93
08/13/23 06:56 08/13/23 07:00 08/13/23 06:56 08/13/23 06:51 08/13/23 08:55
Vital Signs
Temp Pulse Resp BP Pulse Ox
97.7 F 76 16 108/58 93
08/13/23 06:56 08/13/23 07:00 08/13/23 06:56 08/13/23 06:51 08/13/23 08:55
Intake & Output
08/11/23 08/12/23 08/13/23 08/14/23
06:59 06:59 06:59 06:59
Intake Total 120 / 120 480 / 480
Balance 120 / 120 480 / 480
Physical Exam
Physical Exam
General: No acute distress, AAOX3
Neck: Negative JVD
Heart: Regular, Negative S3 positive S1/S2, Negative S4, No murmur
Lungs: CTA b/l, negative wheezes/rales/rhonchi
Abd: Positive BS, NT/ND, neg rebound/rigidity/guarding
Ext: Negative cyanosis/clubbing/edema
Neuro: nonfocal
[2023-08-13] MEDS: TUMS 2 TABLET PO (10:13)
[2023-08-13 11:01] VITALS: BP 123/57
[2023-08-13] MEDS: TIKOSYN 125 MCG PO ×2 (13:01→19:51)
--- NOTE | 2023-08-13 13:05 | PTCARENOTE ---
Tikosyn 125 mg given po as ordered, will check EKG at 1500.
[2023-08-13 15:03] VITALS: BP 100/63
[2023-08-13 18:37] VITALS: BP 118/77
[2023-08-13 22:11] VITALS: BP 108/65
[2023-08-13] MEDS: XANAX 0.25 MG PO (22:17)
--- NOTE | 2023-08-13 22:58 | PTCARENOTE ---
Requested and took Xanax at for sleep. No other complaints. Remains SR on the monitor with PAC's, 60's-70's.
[2023-08-14 04:19] VITALS: BP 114/65
[2023-08-14 05:25] LABS: Blood Urea Nitrogen 27 mg/dl (7-17); Calcium 9.7 mg/dl (8.4-10.2); Carbon Dioxide 25 mmol/L (22-30); Chloride 103 mmol/L (98-107); Estimated Creatinine Clearance 80 ml/min; Glucose 109 mg/dl (70-99); Sodium 137 mmol/L (135-145); eGFR > 60.00
[2023-08-14 06:59] VITALS: BP 103/74
[2023-08-14] MEDS: FLUSH (NSS) 1 FLUSH IV (07:45)
[2023-08-14] MEDS: ZOLOFT 150 MG PO (07:46)
[2023-08-14] MEDS: ELIQUIS 5 MG PO (07:46)
[2023-08-14] MEDS: TIKOSYN 125 MCG PO (07:46)
[2023-08-14] MEDS: LOW STRENGTH ASPIRIN 81 MG PO (07:46)
[2023-08-14] MEDS: PROTONIX 40 MG PO (07:46)
[2023-08-14] MEDS: TUMS 2 TABLET PO (09:45)
--- NOTE | 2023-08-14 10:16 | W.PN.CARDCBS ---
Addendum entered and electronically signed by Rose Rucker PA-C 08/14/23 14:37:
Sent 3 day Tikosyn Rx to pharmacy to be filled prior to patient being discharged.
Original Note:
Today's Communication / Plan
-
d/c today if QTc remains stable
Outpt cardiac follow up.
Impression / Plan
-
Primary Audience Development Manager: Dr. Good
Impression:
Presented 08/10/2023 with palpitations, tachycardia
Symptomatic aflutter with RVR, paroxysmal
PACs
Elevated troponin, presumed nonischemic myocardial injury secondary to recent PVI
Paroxysmal atrial fibrillation s/p PVI 08/09/23
Atrial flutter s/p ablation 02/2023
Chronic OAC with eliquis
Anxiety, on Zoloft
HARLAN 08/04/23: EF 50 to 55%, mildly dilated bilateral atria, mild bileaflet prolapse, moderate MR, mild eccentric AR, mild bileaflet prolapse of tricuspid leaflets, mild to moderate TR
Plan:
HPI: Patient returned to [facility] 08/10/2023 due to several paroxysms of symptomatic afib/aflutter with RVR status post PVI 08/09/2023
Options discussed with patient including low-dose beta-amadeo versus Tikosyn loading. She opted for Tikosyn loading
Given baseline bradycardia, patient started on Tikosyn 250 mcg Q12 hours. First dose given 08/11/23 in am.
Her QTc prolonged to 550 ms in the p.m. 08/11 and Tikosyn held.
Resumed Tikosyn 125 mcg every 12 hours starting midday 08/12.
Received Tikosyn 125 mcg AM August 13.
If QTc remains stable, possible discharge after a.m. dose 08/13.
Continue Eliquis, hemoglobin stable
Continue medical therapy of non-UT troponin elevation
CT chest without acute findings
Outpt follow up Dr Good.
Discussed with nursing.
Discussed with hospitalist
Progress Note - Audience Development Manager
Subjective
Date of Service: August 14, 2023
Pt seen and examined. No complaints. No chest pain or shortness of breath.
Objective
Labs:
08/11/23 02:57
08/14/23 04:31
Labs
Hgb 12.6 g/dL (12.0-16.0) 08/11/23 02:57
Hct 36.8 % (37.0-47.0) L 08/11/23 02:57
Plt Count 183 10^3/uL (130-400) 08/11/23 02:57
Sodium 137 mmol/L (135-145) 08/14/23 04:31
Potassium 4.0 mmol/L (3.5-5.1) 08/14/23 04:31
BUN 27 mg/dl (7-17) H 08/14/23 04:31
Creatinine 0.6 mg/dL (0.6-1.0) 08/14/23 04:31
Glucose 109 mg/dl (70-99) H 08/14/23 04:31
Vital Signs and I&O:
Vital Signs
Temp Pulse Resp BP Pulse Ox
97.7 F 66 20 103/74 97
08/14/23 06:56 08/14/23 07:00 08/14/23 06:56 08/14/23 06:59 08/14/23 06:56
Vital Signs
Temp Pulse Resp BP Pulse Ox
97.7 F 66 20 103/74 97
08/14/23 06:56 08/14/23 07:00 08/14/23 06:56 08/14/23 06:59 08/14/23 06:56
Intake & Output
08/12/23 08/13/23 08/14/23 08/15/23
06:59 06:59 06:59 06:59
Intake Total 480 / 480
Balance 480 / 480
Physical Exam
Physical Exam
General: No acute distress, AAOX3
Neck: Negative JVD
Heart: Regular, Negative S3 positive S1/S2, Negative S4, No murmur
Lungs: CTA b/l, negative wheezes/rales/rhonchi
Abd: Positive BS, NT/ND, neg rebound/rigidity/guarding
Ext: Negative cyanosis/clubbing/edema
Neuro: nonfocal
--- NOTE | 2023-08-14 10:18 | PTCARENOTE ---
Addendum entered by Jennifer Lovett RN 08/14/23 10:19:
NSR
Original Note:
Patient's 2 hr post Tikosyn QTc 446.
[2023-08-14 11:24] VITALS: BP 124/83
--- NOTE | 2023-08-14 12:56 | W.PN.HOSP.TC ---
Today's Communication/Plan
-
dc home
Assessment / Plan
Assessment / Plan
Assessment:
Rapid A-fib with RVR
- noted recent ablation 08/09/2023 (previously Ablation 03/15/2023)
- s/p Tikosyn loading with QTC acceptable at present dose
- continue Eliquis
- follow up with EP outpatient.
Nonischemic myocardial injury
- trop peaked at 3.64
- CT without acute findings
Generalized anxiety disorder
Depression Hx
- Continue Zoloft 150 mg daily, Xanax 0.125-0.25 mg twice daily as needed
Osteopenia/osteoporosis Hx
- continue vitamin D3
Lactose intolerance
- lactose-free diet
DVT prophylaxis: Eliquis
Code: Full
More than 30 minutes spent in discharge including
Final examination of the patient
Summarizing hospital stay
Instructions for continuing care to all relevant caregivers
Preparation of discharge records, prescriptions, and referral forms
Total time spent (in minutes): 41
Anticipated Discharge: Today
Subjective/Interval History
-
Date of Service: August 14, 2023
no complaints, tolerating Tikosyn with acceptable QTcs
Objective Data
-
Labs:
Laboratory Results
08/14/23
04:31
Sodium 137
Potassium 4.0
Chloride 103
Carbon Dioxide 25
BUN 27 H
Creatinine 0.6
Glucose 109 H
Calcium 9.7
Vital Signs:
Vital Signs
Temp Pulse Resp BP Pulse Ox
97.8 F 72 20 124/83 96
08/14/23 11:20 08/14/23 12:00 08/14/23 11:20 08/14/23 11:24 08/14/23 11:20
I&O
0508/14/23 08/15/23
06:59 06:59 06:59
Intake Total 480 / 480
Balance 480 / 480
Physical Exam
-
General: No Apparent Distress
HEENT: Normocephalic and Atraumatic
Respiratory: Negative Wheezes
Cardiac: Regular Rhythm and S1/S2
GI: Soft
Genito-urinary: No Costovertebral Tender
Musculoskeletal: No Edema
Neuro: AO x 3
Psych: Calm
Data Reviewed
-
Total Time Spent with Patient (in minutes): 41
Labs: Labs Reviewed by me
--- NOTE | 2023-08-14 13:01 | W.DS.TRANS ---
DC Summary - [employer]
-
Discharge Instructions:
Sleep Apnea Risk Low
Discharge Diagnosis/Procedures rapid Afib s/p Tikosyn loading
Diet Low Cholesterol
Activity As tolerated
Instructions:
Stand-Alone Forms:
Changes to Home Medications: No
Discharge Medications:
DC Medications w/original date entered in [employer]
alprazolam 0.25 mg tablet 0.125 - 0.25 mg PO BID PRN anxiety 03/03/23
apixaban 5 mg tablet (Eliquis) 5 mg PO BID Blood Clot Prevention/Tx 03/03/23
sertraline 100 mg tablet 150 mg PO DAILY Mental Health/Anxiety 03/03/23
cholecalciferol (vitamin D3) 1,250 mcg (50,000 unit) capsule 1,250 mcg PO FR Supplement 08/10/23
estradiol 0.01% (0.1 mg/gram) vaginal cream 1 appful vaginal SUWE Hormonal Agent 08/10/23
dofetilide 125 mcg capsule 125 mcg PO Q12 #60 caps 08/14/23
Home Medication Changes
Pending Results: No
Total time spent discharging patient (in min): 42
--- NOTE | 2023-08-14 13:28 | CM ---
Addendum entered by MANOJ Johnson 08/14/23 13:31:
Call to patient's pharmacy; Tikosyn is not in stock. They will order and have available tomorrow.
Pt. will go home w/ x3 day supply.
Original Note:
CM following for DC planning needs.
Pt. for DC today. Met w/ patient at bedside. She feels prepared for DC and offers no concerns or needs.
Plan is for home, no needs.
[2023-08-14] MEDS: XANAX 0.25 MG PO (13:37)
[2023-08-14 15:27] VITALS: BP 121/76
== END 2023-08-14 17:22 | disposition home or self-care (01) | DRG 309 ==
LOC: IVU 23:11
PROVIDERS: Clinical Nurse Specialist Family Health; Hospitalist; ADMITTING PHYSICIAN Hospitalist; ATTENDING PHYSICIAN Internal Medicine; CONSULT PHYSICIAN Internal Medicine Cardiovascular Disease; EMERGENCY PHYSICIAN Emergency Medicine; FAMILY PHYSICIAN Internal Medicine
PROC: 3E0DXRZ Introduction of Antiarrhythmic into Mouth and Pharynx, External Approach (ICD-10-PCS; 2023-08-11)
DX: I48.0 Paroxysmal atrial fibrillation (principal); I5A Non-ischemic myocardial injury (non-traumatic); R00.0 Tachycardia, unspecified; I48.92 Unspecified atrial flutter; I95.9 Hypotension, unspecified; F41.1 Generalized anxiety disorder; M54.9 Dorsalgia, unspecified; M81.0 Age-related osteoporosis without current pathological fracture; F32.A Depression, unspecified; G89.29 Other chronic pain; E73.9 Lactose intolerance, unspecified; Z88.0 Allergy status to penicillin; Z82.49 Family history of ischemic heart disease and other diseases of the circulatory system; Z79.01 Long term (current) use of anticoagulants
CPT/HCPCS: 71045; 71275; 80048; 80053; 83735; 84443; 84484; 85025; 93005; 96374; 99291; Q9967